=== PATIENT | female | born 1955 | race Caucasian/White ===

== ENCOUNTER 2020-03-10 15:15 | Inpatient (IN) | payer BC ==
[2020-03-10 15:48] LABS: #Basophils 0.1 thou/uL (0.0-0.2); #Eosinphils 1.7 thou/uL (0.0-0.7); #Lymphocytes 0.4 thou/uL (1.20-3.40); #Monocytes 0.6 thou/uL (0.11-0.59); #Neutrophils 7.3 thou/uL (1.40-6.50); %Basophils 0.5 % (0.0-1.0); %Eosinophils 16.9 % (0.0-10.0); %Lymphocytes 3.6 % (21.0-51.0); %Neutrophils 72.9 % (42.0-75.0); Hemoglobin 9.3 g/dL (12.0-16.0); Mean Corpuscular HGB CONC 31.7 g/dL (32.0-36.0); Mean Corpuscular Hemoglobin 25.9 pg (27.0-31.0); Mean Corpuscular Volume 81.6 fL (78.0-98.0); Mean Platelet Volume 8.2 fL (7.4-10.4); Platelet Count 165 thou/uL (130-400); Red Blood Cell (RBC) Count 3.61 mill/uL (4.20-5.40)
[2020-03-10 15:58] LABS: ALT (SGPT) 27 U/L (8-55); AST (SGOT) 32 U/L (5-34); Albumin 3.7 g/dL (3.4-4.8); Alkaline Phosphatase 82 U/L (40-110); Anion Gap 18 mmol/L (10-20); BUN (Urea Nitrogen) 101 mg/dL (9.8-20.1); Bilirubin, Total 0.4 mg/dL (0.2-1.2); Calc. Creatinine Clearance 0 mL/min (70-130); Carbon Dioxide 28 mmol/L (23-31); Chloride 93 mmol/L (98-107); Globulin 2.6 g/dL (2.4-3.5); Glucose 180 mg/dL (80-115); Protein, Total 6.3 g/dL (6.0-8.3); Sodium 136 mmol/L (136-145)
[2020-03-10 16:11] LABS: INR-International Normal Ratio 1.2; PTT 43.3 sec (22.9-36.1); Prothrombin Time 15.8 sec (12.0-14.7)
[2020-03-10 16:36] LABS: Magnesium 3.1 mg/dL (1.6-2.6)
[2020-03-10 16:37] LABS: CKMB 7.8 ng/mL (0-6.6)
[2020-03-10] MEDS ORDERED: Insulin Regular 300 UNITS/3 ML VIAL SC PRN (16:53)
[2020-03-10] MEDS ORDERED: Dextrose 50% Abboject 50 ML SYRINGE SLOW IVP PRN (16:53)
[2020-03-10] MEDS ORDERED: Dextrose 5% in Water 1,000 ML IV PRN (16:53)
[2020-03-10] MEDS ORDERED: hydrALAZINE 20 MG/ML VIAL SLOW IVP PRN (16:53)
[2020-03-10] MEDS ORDERED: Lactated Ringer's 1,000 ML IV SCH ×2 (17:00→17:45)
--- NOTE | 2020-03-10 17:28 | RAD ---
Exam: Chest one view HISTORY:Fall. Comparison: 04/29/2017 FINDINGS: Cardiac silhouette: Normal Aorta: Unremarkable Pulmonary vessels: Normal Costophrenic angles: Blunting of the left costophrenic angle likely due to small effusion. LUNGS: No masses or consolidation. Chronic changes. Diminished lung volumes, likely due to a poor ins piratory effort. Pneumothorax: None Osseous abnormalities: None IMPRESSION: Small left-sided effusion.
--- NOTE | 2020-03-10 17:30 | CT ---
Exam: Head CT without contrast HISTORY: Left tentorial subdural hematoma. COMPARISON: none FINDINGS: Hemorrhage: Left tentorial subdural hematoma. Largest component measures 2.6 x 2.1 cm. Subdural colle ction extends along the posterior left parafalcine region. Subdural blood also extends along the medial left temporal subdural region. No evidence of intraparenchymal hemorrhage. There is a isodense left frontal temporal subdural collection. This collection measures approximately 0.3 cm. No significant mass effect upon the left frontal or temporal region. Brain parenchyma: Cortical hdez-white matter differentiation is preserved. No mass effect or midline shift. Basilar cisterns are patent. Ventricular system: Ventricles and sulci are patent and symmetric. Calvarium: Intact. Sinuses and mastoid air cells: Adequate aeration. IMPRESSION: Extra-axial hemorrhage as described above. Findings conveyed to Niko Meier via [employer] 03/10/2020 5:29 PM Code CR Transcribed Date/Time: 03/10/2020 5:42 PM
[2020-03-10 17:32] LABS: Bacteria/HPF None Seen HPF (None Seen); Bilirubin Negative (Negative); Blood, Urine 1+ (Negative); Clarity Clear (Clear); Glucose, Urine (Dipstick) 100 mg/dL (Negative); Ketone, Urine Negative (Negative); Leukocyte Negative Leu/uL (Negative); Nitrite Negative (Negative); Protein, Urine (Dipstick) 100 mg/dL (Neg-Trace); RBC/HPF 0-3 HPF (0-3); Specific Gravity, Urine 1.012 (1.002-1.036); Squamous Epithelial 0-3 HPF (0-3); Urobilinogen Normal mg/dL (Less than 2); WBC/HPF 0-3 HPF (0-3); pH, Urine 6.5 (5.0-9.0)
--- NOTE | 2020-03-10 19:14 | HP ---
CONSULTING PHYSICIAN: Ling Jain MD HISTORY OF PRESENT ILLNESS: The patient is a 64-year-old female, who was transferred from [place] via flight. The patient reports that her knees gave out on Friday. She subsequently fell on to her side and hit her head. She denies loss of consciousness. She reports taking aspirin and Brilinta. The patient reports another fall on Friday. She states that she fell directly on her bottom. The only pain that she reports is on the left side of her head whenever she leans forward. She says that since her multiple falls that she has been having trouble finding her words. There are no signs that she is having a TIA. She actually talks quite clearly, occasionally she becomes overwhelmed and emotional and has trouble getting out, which she is trying to say, but can follow along with a conversation quite well. Her GCS is 15 on my evaluation. Her strength is equal bilaterally. There are no signs of any facial drooping. She is alert and oriented x4. Her is at the bedside, who is able to provide additional support and information about her medical history. The patient gets around with a walker usually and was using her walker when she fell these 2 times. The patient received potassium orally at the outside hospital. The documentation provided does not specify the amount of potassium that she was provided. The patient reports within the past 6 months having cardiac type symptoms and being [place] the [place], where she was started on Brilinta. It is unclear if she had an RI, but her home archaeologist continued the medication and reported that her troponin levels were unconcerning when she evaluated the patient. Upon my evaluation, the patient reports that she has not had any recent shortness of breath, chest pain, cough, fever, chills, lightheadedness, dizziness, or syncopal events. REVIEW OF SYSTEMS: All additional 10-point review of systems negative except as indicated above. PAST MEDICAL HISTORY: CHF, CKD with creatinine usually between 1.9 and 2.2. The patient also recently diagnosed with some sort of restrictive airway disease, but has not further been delineated by the warehouse supervisor that she just started seeing, diabetes, hypertension. PAST SURGICAL HISTORY: None. SOCIAL HISTORY: The patient denies tobacco, drug, or alcohol use. MEDICATIONS: The patient cannot remember her medications at this time. She has a list in the car and her will go get it later. He was not willing to go get at the time of my evaluation, but we do know that she takes Brilinta and aspirin. ALLERGIES: PENICILLIN, CODEINE, AMPICILLIN, AND CONTRAST DYE. PHYSICAL EXAMINATION: VITAL SIGNS: Temperature 96.8, pulse 69, respirations 17, oxygen saturation 98% on room air, and blood pressure 149/62. PRIMARY SURVEY: Airway intact. Adequate breath sounds bilaterally. 2+ pulses in bilateral radials, femorals, and DPs. GCS 15. Gross motor and sensation are intact. No lacerations, bruising, or external bleeding. SECONDARY SURVEY: HEAD: Normocephalic and atraumatic. No gross palpable skull deformities or tenderness. EYES: Pupils equal, round, and reactive to light bilaterally, 3 to 2. ENT: No hemotympanum. No epistaxis. No septal hematoma. Midface stable to manipulation. No blood in the oropharynx. Dentition is intact. NECK: No anterior neck injury/crepitus/tenderness. ABDOMEN: Soft, nontender, and nondistended. PELVIS: Stable to palpation, nontender. No abrasions or ecchymosis noted. RECTAL: Deferred. GENITOURINARY: Deferred. BACK/SPINE: No step-offs or deformities or tenderness to palpation of the thoracic or lumbar spine. No abrasions or ecchymosis noted. NEUROLOGIC: 5/5 strength in bilateral machine tailer, plantar flexion, dorsiflexion. Gross normal sensation x4 extremities. LABORATORY FINDINGS: White count 10.0, hemoglobin 9.3, hematocrit 29.5, and platelets 165. INR 1.2, PTT 43.3. Sodium 136, potassium 3.0, chloride 93, bicarb 29, BUN 101, creatinine 3.37, glucose 180, phosphorus 6.0, magnesium 3.1, total bilirubin 0.7, AST 32, ALT 27, alkaline phosphatase 82, ammonia 34. Troponin 0.037. DIAGNOSTIC FINDINGS: CT scan of the brain demonstrates extra-axial hemorrhage as described above. Chest x-ray demonstrates small left-sided effusion. ASSESSMENT: 1. Status post multiple falls, last one 48 hours ago. 2. Acute kidney injury on chronic kidney disease. 3. Acute hypokalemia. 4. Acute hyperphosphatemia and hypermagnesemia. 5. Elevated troponin, etiology is still unclear. 6. Extra-axial hemorrhage. 7. History of congestive heart failure. 8. Chronic kidney disease. 9. Restrictive airway disease. 10. Diabetes. 11. Hypertension. 12. Recent history of altered mental status. PLAN: The patient will be admitted to the Trauma Service. Dr. Jain's Team has evaluated the patient and they have ordered platelets as well as q.2 hours neuro checks. They have requested the patient go to IM. We will repeat her CT scan in the morning. Repeat troponins 3 hours from the last and continue to trend if concerned. We will hold her Brilinta and aspirin. The patient has received potassium electrolyte replacement orally. We will repeat the blood work in the morning to re-evaluate all electrolytes as well as kidney function. We will hold nephrotoxic agents at this time. She will receive IV fluid bolus with additional resuscitation. The patient on a clear liquid diet. Pending urine drug screen and blood alcohol level. This patient was discussed with Dr. Padilla before this dictation. Job ID: [id number]
[2020-03-10 19:17] LABS: Troponin I 0.028 ng/mL (< 0.028)
[2020-03-10 19:50] LABS: SARS-CoV-2 NAA Rapid Test Not Detected (NotDetected)
[2020-03-10] MEDS ORDERED: Ondansetron PF 4 MG/2 ML Vial IVP PRN (20:00)
[2020-03-10] MEDS ORDERED: Ondansetron ODT 4 MG TAB SL PRN (20:00)
[2020-03-10] MEDS: Acetaminophen 500 MG TAB PO PRN (20:59)
[2020-03-10] MEDS: Senokot S 8.6-50 MG TAB PO SCH (21:00)
[2020-03-10] MEDS ORDERED: Famotidine/PF 20 mg/2ml Vial SLOW IVP SCH (21:00)
[2020-03-10 23:10] VITALS: BMI 37.3
--- NOTE | 2020-03-10 23:35 | CON ---
DATE OF CONSULTATION: 03/10/2020 CHIEF COMPLAINT: Fall. HISTORY OF PRESENT ILLNESS: Mrs. Amaya is a 64-year-old female transferred from [facility] in [place] by [employer]. Reports she fell on Friday and Friday due to her legs giving out. Only reports hitting her head on Friday. Currently takes aspirin 81 mg and ticagrelor 90 mg due to a recent [place] Her took her to [facility] today for headache and slight difficulty with her words. While in the ED at [facility] in [place], she has no neuro deficits on exam. She is moving all extremities. There is no focal motor weakness. Neurosurgery was consulted due to head CT indicating a left 1.8 cm tentorial subdural hematoma. She denies any abdominal pain, back pain, chest pain, nausea, neck pain, seizures, vomiting, loss of consciousness, bladder or bowel dysfunction. REVIEW OF SYSTEMS: CONSTITUTIONAL: Denies fever and chills. ENT: Denies change in vision or hearing. CARDIAC: Denies chest pain, shortness of breath, or diaphoresis. PULMONARY: Denies shortness of breath, cough, or hemoptysis. GI: Denies abdominal pain, nausea, vomiting, diarrhea, change in stool formation and consistency. : Denies trouble with urination, frequency of urination, bloody urine. SKIN: Reports bruising. Denies skin rash, bleeding, or skin masses. MUSCULOSKELETAL: As per history of present illness. NEUROLOGICAL: As per history of present illness. PSYCHOLOGICAL: Denies anxiety, depression, or behavior changes. MEDICAL HISTORY: 1. Cataracts, bilateral. 2. Congestive heart failure, 12/29/2017. 3. Chronic kidney disease, 12/11/2017. 4. Acute hepatitis, 12/30/2017. 5. Diabetes type 2, 12/11/2017. 6. GERD, 12/11/2017. 7. Hypertension, 12/11/2017. PAST SURGICAL HISTORY: Colonoscopy with biopsies in 1986, upper endoscopy on 09/11/2017, cataract extraction in 2018, and tonsillectomy. MEDICATIONS: 1. Acetaminophen 500 mg. 2. Albuterol HFA 90 mcg. 3. Aspirin 81 mg. 4. Atorvastatin 40 mg. 5. Carvedilol 25 mg. 6. Chlorzoxazone 500 mg. 7. Fluticasone 50 mcg nasal spray. 8. Furosemide 80 mg. 9. Gabapentin 300 mg. 10. Hydralazine 100 mg. 11. Levemir. 12. Imdur 60 mg. 13. Xyzal 5 mg. 14. Meclizine 25 mg. 15. Metolazone. 16. Nifedipine 90 mg. 17. Zofran 4 mg. 18. Phenergan 25 mg. 19. Tigracelor 90 mg. ALLERGIES: AMPICILLIN, CODEINE, DICLOFENAC, NEOMYCIN, PENICILLINS, TETRACYCLINES, IODINE CONTRAST MEDIA. SOCIAL HISTORY: Nonsmoker, does not use alcohol. Denies illicit drug use. PHYSICAL EXAMINATION: VITAL SIGNS: BP 148/58, heart rate 73, temperature 97.8. HEENT: Pupils are equal. Extraocular movements are intact. NECK: Normal, soft and supple. No masses are noted. Range of motion is intact and nonpainful. NEUROLOGIC: Awake, alert, and oriented x3. Memory, attention, fund of knowledge, and language are normal. Cranial nerves are grossly intact. EXTREMITIES: Free active range of motion in all extremities. No focal motor weakness. No reflex asymmetry. GCS 15. IMAGING: Head CT, left tentorial subdural hematoma measuring 1.8 cm. LABORATORY DATA: WBC 10, RBC 3.61, hemoglobin 9.3, hematocrit 29.5, platelets 165. PT 15.8, INR 1.2, PTT 43.3. Sodium 136, troponin-I 0.037. ASSESSMENT: 1. Left tentorial subdural hematoma. 2. Headache. 3. Fall. PLAN: Recommend Medicine team to help with management of hypertension and diabetes with also elevated troponin-I. We will give 1 unit of platelets to reverse Tigracelor (Brilinta). Stop aspirin and stop Tigracelor for [address] of the brain tomorrow morning. No intracranial surgery at this time. Supportive care. We will follow up with her in the morning. Job ID: [id number] [facility]
[2020-03-10 23:54] LABS: Amphetamine Not Detected (NotDetected); Barbiturates Screen Not Detected (NotDetected); Benzodiazepine Screen Not Detected (NotDetected); Cocaine Metabolite Screen Not Detected (NotDetected); Medtox Control Line Valid? VALID (VALID); Medtox Reader # READER 4; Methadone Not Detected (NotDetected); Methamphetamine Not Detected (NotDetected); Opiate Screen Not Detected (NotDetected); Oxycodone Screen Not Detected (NotDetected); Phencyclidine (PCP) Not Detected (NotDetected); THC/Cannabinoid Screen Not Detected (NotDetected); Tricyclic Screen Not Detected (NotDetected)
[2020-03-11 04:24] LABS: #Basophils 0.1 thou/uL (0.0-0.2); #Eosinphils 0.9 thou/uL (0.0-0.7); #Lymphocytes 0.3 thou/uL (1.20-3.40); #Monocytes 0.7 thou/uL (0.11-0.59); #Neutrophils 8.5 thou/uL (1.40-6.50); %Basophils 0.7 % (0.0-1.0); %Eosinophils 8.6 % (0.0-10.0); %Lymphocytes 2.5 % (21.0-51.0); %Monocytes 6.9 % (0.0-10.0); %Neutrophils 81.3 % (42.0-75.0); Hemoglobin 8.1 g/dL (12.0-16.0); Mean Corpuscular HGB CONC 30.9 g/dL (32.0-36.0); Mean Corpuscular Hemoglobin 25.4 pg (27.0-31.0); Mean Corpuscular Volume 82.4 fL (78.0-98.0); Mean Platelet Volume 8.3 fL (7.4-10.4); Platelet Count 187 thou/uL (130-400); RBC Distribution Width 14.9 % (11.5-14.5); Red Blood Cell (RBC) Count 3.17 mill/uL (4.20-5.40); White Blood Cell (WBC) Count 10.5 thou/uL (4.8-10.8)
[2020-03-11 04:52] LABS: Anion Gap 20 mmol/L (10-20); BUN (Urea Nitrogen) 98 mg/dL (9.8-20.1); Calc. Creatinine Clearance 24 mL/min (70-130); Calcium 8.1 mg/dL (7.8-10.44); Carbon Dioxide 24 mmol/L (23-31); Chloride 96 mmol/L (98-107); Glucose 137 mg/dL (80-115); Magnesium 2.9 mg/dL (1.6-2.6); Phosphorus 5.7 mg/dL (2.3-4.7); Potassium 3.2 mmol/L (3.5-5.1); Sodium 137 mmol/L (136-145)
--- NOTE | 2020-03-11 06:32 | PRG ---
DATE OF SERVICE: 03/11/2020 The patient is currently on the IMCU. She was admitted with a subdural hemorrhage with a delayed presentation. The nurse reported no issues overnight. She received her 1 unit of platelets per Neurosurgery. The nurse reports the patient's [place] Coma Scale remains 14/15. Her vital signs are stable. At each of my visit, the patient has been resting comfortably. I did not awaken her for an exam. We will continue as previously planned per the day team and Neurosurgery. Job ID: [id number]
--- NOTE | 2020-03-11 07:41 | CT ---
PRELIMINARY REPORT/DIRECT RADIOLOGY/EMERGENCY AFTER HOURS PROCEDURE: EXAM: CT Head Without Intravenous Contrast. CLINICAL HISTORY: Follow up tentorial subdural hematoma TECHNIQUE: axial computed tomography images of the head/brain without intravenous contrast. COMPARISON: CTSR - CT BRAIN WO CON - 03/10/2020 05:20 PM RECREATIONAL SPECIALIST FINDINGS: BRAIN: No significant interval change in the collection of subdural blood seen extending along the fl oor of the left tentorial membrane with mild mass-effect on the subjacent posterior and anterior temporal lobe. No new areas of debris from hemorrhage. No mass lesion. No CT evidence for acute terr itorial infarct. No midline shift or extra-axial collection. VENTRICLES: No hydrocephalus. ORBITS: Status post lens replacement of the bilateral globes. The orbits are otherwise unremarkable. SINUSES AND MASTOIDS: The paranasal sinuses and mastoid air cells are clear. SOFT TISSUES: No significant facial or scalp soft tissue swelling evident. No radiopaque foreign body is seen. BONES: No acute skull fracture. IMPRESSION: 1. Unchanged appearance of the left subdural hematoma extending along the tentorial membrane. 2. No new acute or suspicious intracranial findings. ELECTRONICALLY SIGNED BY: Mook Colon MD Mar 11, 2020 5:06:56 AM RECREATIONAL SPECIALIST FINAL REPORT BRAIN CT WITHOUT CONTRAST: EMERGENCY AFTER HOURS EXAM TIME: 4:40 AM. DATE: 03/11/2020. This a final report. Overall stable left tentorial, left temporal, and left parafalcine hemorrhage from 03/10/2020 5:21 PM study This report agrees with the preliminary report. Transcribed Date/Time: 03/11/2020 7:47 AM
[2020-03-11] MEDS ORDERED: Fluticasone Propionate Nasal Spray 16 gm Bottle NASAL PRN (07:55)
[2020-03-11] MEDS ORDERED: Albuterol 200 PUFF (6.7GM INHALER) INH PRN (08:07)
[2020-03-11] MEDS ORDERED: Potassium Chloride 40 MEQ in Sodium Chloride 0.9% 250 ML 250 ML IVPB SCH (08:30)
--- NOTE | 2020-03-11 08:46 | PRG ---
DATE OF SERVICE: 03/11/2020 I personally interviewed and examined the patient, reviewed notes and imaging and agreed with the documentation of Niko Meier PA-C dated 03/10/2020 and 03/11/2020. Briefly, Tamiko Amaya was admitted to our hospital yesterday in transfer after head injury resulted in a tentorial hematoma on the left side. She was on Brilinta and aspirin as dual antiplatelet agents prior to the fall. She has been given platelets overnight. When I get Ms. Amaya awake this morning, she does not complain of headache. A followup CT scan has been done already this morning. OBJECTIVE: VITAL SIGNS: Among the electronically recorded vital signs, I see a maximum temperature of 99.7 degrees Fahrenheit. Blood pressures have ranged between 140s and 160s. Heart rate is in the 70s. NEUROLOGIC: On neurological examination, Ms. Amaya requires some stimulus to open her eyes, but after waking, she gives appropriate one-word answers to questions. She moves all 4 extremities to command. She is wiggling her toes for me. She is squeezing both hands. She nods, she says yes and no and she tells me that her head does not hurt. She falls quickly back to sleep. There is no lateralizing neglect or drift. DIAGNOSTIC DATA: I reviewed this morning CT scan of the brain. The tentorial subdural hematoma under the left temporal lobe is the same as it was yesterday. Ms. Amaya is getting Pepcid which has a mild antiplatelet activity. I stopped that and started Protonix. Ms. Amaya was getting 100 mL of lactated Ringer's per hour, which is likely not necessary. I stop the IV fluid for now. It can be restarted, but if it is, I would start at a very low dose of normal saline. If she wakes and feels hunger and thirst, she can drink and she does not need IV fluids. Her reports a chronic creatinine in the 2-2.5 range, so her CRI is a bit worse. We should follow sodium over time to ensure she does not develop any hyponatremia and I could put her at risk for seizures. We will add kepppra We need to hold Brilinta two weeks, if ASA is necessary sooner, my preference is 1 week at least. The location of the subdural hematoma does not make it advantageous for any surgical intervention, and she will be treated conservatively. Job ID: [id number] MTDD
[2020-03-11] MEDS ORDERED: Famotidine 20 MG TAB PO SCH (09:00)
[2020-03-11] MEDS ORDERED: Prevnar 13-Val Conj/PF 0.5 ML SYRINGE IM ONE (09:00)
[2020-03-11] MEDS ORDERED: FLU VACC QS2020-21(6MOS UP)/PF 60 MCG/0.5 ML SYRINGE IM ONE (09:00)
[2020-03-11] MEDS: Carvedilol 25 MG TAB PO SCH ×2 (09:27→20:31)
[2020-03-11] MEDS: Gabapentin 100 MG CAP PO SCH (09:27)
[2020-03-11] MEDS: Montelukast Sodium 10 mg Tablet PO SCH (09:28)
[2020-03-11] MEDS: Senokot S 8.6-50 MG TAB PO SCH ×2 (09:28→20:31)
[2020-03-11] MEDS: Polyethylene Glycol 3350 17 GM Packet PO SCH (09:29)
[2020-03-11] MEDS: Acetaminophen 500 MG TAB PO PRN ×2 (09:34→21:40)
--- NOTE | 2020-03-11 12:20 | PRG ---
DATE OF SERVICE: 03/11/2020 SUBJECTIVE: The patient was seen this morning during rounds. She was sitting up in bed, asleep. She was arousable. GCS 15. She has not had breakfast yet. Reports her pain is controlled. No acute events overnight. OBJECTIVE: VITAL SIGNS: Temperature 98.8, pulse 84, respirations 12, oxygen saturation 99% on room air, blood pressure 167/105. GENERAL: Well-appearing middle-aged female, sitting up in bed with no signs of acute distress. PULMONARY: Equal chest rise and fall. Clear breath sounds bilaterally. No signs of acute respiratory distress. CARDIAC: Regular rate and rhythm. GI: Abdomen is soft, nontender, nondistended. EXTREMITIES: 2+ pulses in all extremities. Gross motor and sensation are intact. No significant swelling noted. NEUROLOGIC: GCS is 15. Pupils are equal, round, reactive to light bilaterally. No focal neurological deficits noted. LABORATORY FINDINGS: White count 10.5, hemoglobin 8.1, hematocrit 26.1, platelets 187. Sodium 137, potassium 3.2, chloride 96, bicarb 24, BUN 98, creatinine 3.23, glucose 137, phosphorus 5.7, magnesium 2.9. DIAGNOSTIC FINDINGS: CT scan completed this morning demonstrates unchanged appearance of left subdural hemorrhage extending along the tentorial membrane. No new acute or spontaneous intracranial findings. ASSESSMENT: 1. Status post multiple recent falls, on Brilinta. 2. Extraaxial subdural hemorrhage. 3. Acute kidney injury on chronic kidney disease, slightly improved. 4. Acute hypokalemia, persistent, but slightly improved. 5. Acute hyperphosphatemia and hypermagnesemia, improving. 6. History of possible myocardial infarction within the past 6 months. The patient is a poor historian, congestive heart failure, chronic kidney disease, restrictive airway disease, diabetes, and hypertension. PLAN: Advance the patient to a diabetic diet. Discontinue IV fluids. Hold home Lasix. Repeat blood work in the morning to follow electrolytes as well as kidney function. Start working with Physical and Occupational therapy as well as speech language pathology. Neurosurgery recommends holding Brilinta and aspirin for 2 weeks for her traumatic brain injury. Dr. Soto has asked to consult Cardiology's further input as well seeing as the patient has a recent history of DE. Order has been placed for Case Management to start working on rehab screening.This patient was discussed with this morning before this dictation. Job ID: [id number] [facility]
--- NOTE | 2020-03-11 15:53 | CON ---
DATE OF CONSULTATION: HISTORY OF PRESENT ILLNESS: The patient is a 65-year-old woman who had a fall and developed altered mental status. The patient has a previous history of congestive heart failure. She is followed by fish egg packer in the [place]. The patient apparently has diastolic heart failure. She has been on medical therapy. A few months ago, she was in [place] and apparently was found to have an elevated troponin level. It was unclear whether she had suffered a myocardial infarction. She underwent a followup evaluation with her primary fish egg packer. This included an echocardiogram and stress test which were apparently unremarkable. The patient has been doing well until a week ago when she had a fall. The patient had a second fall and now has a subdural hematoma. The patient has not had placement of intracoronary stent according to her and her . The patient denies having any chest pain. She reports dyspnea with minimal exertion. PAST MEDICAL HISTORY: 1. Congestive heart failure. 2. Diabetes mellitus. 3. Hypertension. 4. Restrictive lung disease. PAST SURGICAL HISTORY: None. SOCIAL HISTORY: None. FAMILY HISTORY: None. ALLERGIES: CODEINE, PENICILLIN, AND IODINE. REVIEW OF SYSTEMS: Ten-point system otherwise unremarkable. No history of bruising or bleeding. PHYSICAL EXAMINATION: GENERAL: Obese woman, in no acute distress. VITAL SIGNS: Blood pressure was 147/70. NECK: No jugular venous distention. LUNGS: Clear to auscultation. HEART: Regular rate and rhythm. Normal S1, S2 with a 1/6 systolic murmur. ABDOMEN: Distended. EXTREMITIES: Showed severe bilateral edema. VASCULAR: Radial pulses 2+. LABORATORY DATA: Sodium 137, potassium 3.2, chloride 96, bicarbonate 24, BUN 98, creatinine 3.2, glucose 137. White blood cell count 10.5, hemoglobin 8.1, hematocrit 26.1, platelets are 187. IMPRESSION: 1. Subdural hematoma. 2. History of a possible myocardial infarction. 3. Hypertension. 4. Diabetes mellitus. 5. Chronic renal failure. 6. This patient presents with a subdural hematoma. She had been on Brilinta and aspirin because of her previous hospitalization where she had an elevated troponin level. From a cardiac standpoint, she did not have placement of a stent, so it is appropriate for her to be off anti-platelet medication. I will check an echocardiogram. I would restart the patient on her Imdur. We will follow this patient with you through her hospitalization. Job ID: [id number] MTDD
[2020-03-11] MEDS: levETIRAcetam 500 MG TAB PO SCH (20:31)
[2020-03-11] MEDS: Atorvastatin Calcium 40 MG TAB PO SCH (20:31)
[2020-03-11] MEDS: Loratadine 10 MG TAB PO SCH (20:31)
[2020-03-11] MEDS: Mometasone 100 MCG/Formoterol 5 MCG 120 PUFF INHALER INH SCH (21:39)
--- NOTE | 2020-03-12 04:51 | PRG ---
DATE OF SERVICE: 03/12/2020 The patient is currently on the surgical floor. She is status post a fall on Brilinta with a delayed presentation, underwent evaluation and examination, was noted to have a subdural hemorrhage. The patient has been doing well. She was moved from the IMCU today to the surgical floor. Her neurologic exam remained stable with a [place] Coma Scale of 14-15. She has been evaluated by Cardiology today and they agree with holding her aspirin and her Brilinta. The patient is awaiting placement. She will continue working with physical and occupational therapy. Job ID: [id number]
[2020-03-12 05:16] LABS: #Eosinphils 1.6 thou/uL (0.0-0.7); #Lymphocytes 0.5 thou/uL (1.20-3.40); #Monocytes 0.6 thou/uL (0.11-0.59); #Neutrophils 7.3 thou/uL (1.40-6.50); %Basophils 0.5 % (0.0-1.0); %Eosinophils 15.8 % (0.0-10.0); %Lymphocytes 4.6 % (21.0-51.0); %Monocytes 6.3 % (0.0-10.0); %Neutrophils 72.9 % (42.0-75.0); Hemoglobin 8.3 g/dL (12.0-16.0); Mean Corpuscular HGB CONC 30.2 g/dL (32.0-36.0); Mean Corpuscular Hemoglobin 25.2 pg (27.0-31.0); Mean Corpuscular Volume 83.2 fL (78.0-98.0); Mean Platelet Volume 7.9 fL (7.4-10.4); Platelet Count 170 thou/uL (130-400); RBC Distribution Width 14.9 % (11.5-14.5); Red Blood Cell (RBC) Count 3.31 mill/uL (4.20-5.40)
[2020-03-12 05:36] LABS: Anion Gap 18 mmol/L (10-20); BUN (Urea Nitrogen) 93 mg/dL (9.8-20.1); Calc. Creatinine Clearance 24 mL/min (70-130); Calcium 8.3 mg/dL (7.8-10.44); Carbon Dioxide 27 mmol/L (23-31); Chloride 99 mmol/L (98-107); Glucose 127 mg/dL (80-115); Potassium 3.7 mmol/L (3.5-5.1); Sodium 140 mmol/L (136-145)
[2020-03-12] MEDS: Mometasone 100 MCG/Formoterol 5 MCG 120 PUFF INHALER INH SCH ×2 (08:12→18:31)
[2020-03-12] MEDS ORDERED: Potassium Chloride 20 MEQ TAB PO SCH (09:00)
--- NOTE | 2020-03-12 09:12 | PRG ---
DATE OF SERVICE: 03/12/2020 I saw Tamiko Amaya in her hospital room this morning. She is out of the intermediate care unit. She is more awake this morning. She complains of some cognitive slowing where, it is hard to get the right words to say and that frustrates her. Her extremities are working well. Overnight, the maximum temperature I saw was 99.9 degrees Fahrenheit. Her blood pressures have been in the 160s to 170s, slightly high. Heart rates are in the 50s to 60s. Her oxygen saturation on room air is 92% to 93%. She does not feel short of breath. Ms. Amaya is awake. She follows commands. She moves all 4 extremities. I do not appreciate any cognitive slowing, but she complains on that. We will continue to follow Ms. Amaya while she is in the hospital. We made recommendations for anti-platelet agents, but I also understand that there is risk in holding these, so we have to balance those risks. Thankfully, her tentorial subdural hematoma is stable and should slowly go away so long as she does not fall again or become extremely coagulopathic. Job ID: [id number]
[2020-03-12] MEDS: levETIRAcetam 500 MG TAB PO SCH ×2 (09:31→20:33)
[2020-03-12] MEDS: Carvedilol 25 MG TAB PO SCH ×2 (09:32→20:33)
[2020-03-12] MEDS: Senokot S 8.6-50 MG TAB PO SCH ×2 (09:32→20:33)
[2020-03-12] MEDS: Gabapentin 100 MG CAP PO SCH (09:32)
[2020-03-12] MEDS: Polyethylene Glycol 3350 17 GM Packet PO SCH (09:32)
[2020-03-12] MEDS: Montelukast Sodium 10 mg Tablet PO SCH (09:32)
[2020-03-12] MEDS: Acetaminophen 500 MG TAB PO PRN ×2 (09:33→20:33)
[2020-03-12] MEDS ORDERED: Hydrocerin (Eucerin) Cream 120 gm Jar TOP PRN (10:43)
--- NOTE | 2020-03-12 19:33 | PRG ---
DATE OF SERVICE: 03/12/2020 SUBJECTIVE: The patient was seen this morning during rounds. She was lying in bed and asleep. She was easily arousable. The patient had auditory end-expiratory wheeze and reported she was feeling a little short of breath. She was placed on 2 L nasal cannula and given breathing treatment. Her oxygen saturation improved from 84% to 100%. She reported she did not sleep well overnight. She generally is not a moaning person. Nursing reported no acute events. She was tolerating her breakfast. OBJECTIVE: VITAL SIGNS: Temperature 98.0, pulse 78, respirations 16, oxygen saturation 91% on room air, and blood pressure 155/66. GENERAL: Well-appearing elderly female, sitting up in bed, awake, with no signs of acute distress. PULMONARY: Equal chest rise and fall. Clear breath sounds bilaterally with end-expiratory wheeze. No signs of acute respiratory distress. CARDIAC: Regular rate and rhythm. GI: Abdomen is soft, nontender, nondistended. EXTREMITIES: 2+ pulses in all extremities. Gross motor and sensation are intact. No significant swelling noted. The patient has excoriations to her bilateral thighs from overnight from scratching. The patient is unsure why she feels so itchy, but she has been having this going on for the past month or so. NEUROLOGIC: GCS is 14, -1 for eyes. LABORATORY FINDINGS: White count 10.0, hemoglobin 8.3, hematocrit 27.5, platelets 170. Sodium 140, potassium 3.7, chloride 99, bicarb 27, BUN 93, creatinine 3.23, glucose 127, phosphorus 5.0, magnesium 3.0. DIAGNOSTIC FINDINGS: There are no new diagnostic findings to report. ASSESSMENT: 1. Status post mechanical fall from standing on Brilinta. 2. Extra-axial hemorrhage, subdural hemorrhage. 3. Acute kidney injury on chronic kidney disease, slightly improved, this kidney function may be her new baseline. We will continue to monitor. 4. Acute hyperphosphatemia and hypermagnesemia, improving. 5. Acute hypokalemia, resolved. 6. History of myocardial infarction, congestive heart failure, chronic kidney disease, restrictive airway disease, diabetes, and hyperlipidemia. PLAN: Continue current diet and pain regimen. Continue physical and occupational therapy. Continue supportive care. We will hold her home Lasix for another day and consider restarting tomorrow. The patient does not appear fluid overloaded at this time. Repeat blood work in the morning. The patient is pending discharge to acute rehab facility. Job ID: [id number]
[2020-03-12] MEDS: Loratadine 10 MG TAB PO SCH (20:33)
[2020-03-12] MEDS: Atorvastatin Calcium 40 MG TAB PO SCH (20:33)
[2020-03-12] MEDS: Fluticasone Propionate Nasal Spray 16 gm Bottle NASAL SCH (20:34)
[2020-03-13] MEDS ORDERED: TACROLIMUS TOP PRN (04:37)
[2020-03-13] MEDS ORDERED: Metolazone 2.5 MG TAB PO PRN (04:37)
--- NOTE | 2020-03-13 04:54 | PRG ---
DATE OF SERVICE: The patient was admitted to the hospital status post fall, on ilinta, in which she sustained a subdural hemorrhage. She has remained stable. She has begun working with physical and occupational therapy. Her vital signs have been stable. She is hypertensive, and we have restarted her home antihypertensive medications. She is awaiting placement. She is afebrile. We will continue supportive care. The nurses report no issues overnight. Job ID: [id number]
[2020-03-13 05:30] LABS: #Basophils 0.1 thou/uL (0.0-0.2); #Eosinphils 1.2 thou/uL (0.0-0.7); #Lymphocytes 0.5 thou/uL (1.20-3.40); #Monocytes 0.4 thou/uL (0.11-0.59); #Neutrophils 7.1 thou/uL (1.40-6.50); %Basophils 0.9 % (0.0-1.0); %Eosinophils 12.4 % (0.0-10.0); %Lymphocytes 5.1 % (21.0-51.0); %Monocytes 4.6 % (0.0-10.0); %Neutrophils 76.9 % (42.0-75.0); Hemoglobin 8.3 g/dL (12.0-16.0); Mean Corpuscular HGB CONC 30.4 g/dL (32.0-36.0); Mean Corpuscular Hemoglobin 25.1 pg (27.0-31.0); Mean Corpuscular Volume 82.7 fL (78.0-98.0); Mean Platelet Volume 8.6 fL (7.4-10.4); Platelet Count 153 thou/uL (130-400); RBC Distribution Width 15.1 % (11.5-14.5); Red Blood Cell (RBC) Count 3.29 mill/uL (4.20-5.40); White Blood Cell (WBC) Count 9.2 thou/uL (4.8-10.8)
[2020-03-13 05:51] LABS: Anion Gap 20 mmol/L (10-20); BUN (Urea Nitrogen) 91 mg/dL (9.8-20.1); Calc. Creatinine Clearance 25 mL/min (70-130); Calcium 8.6 mg/dL (7.8-10.44); Carbon Dioxide 25 mmol/L (23-31); Chloride 104 mmol/L (98-107); Glucose 91 mg/dL (80-115); Phosphorus 4.6 mg/dL (2.3-4.7); Potassium 4.3 mmol/L (3.5-5.1); Sodium 145 mmol/L (136-145)
[2020-03-13] MEDS ORDERED: Labetalol HCl 100 MG/20 ML VIAL SLOW IVP PRN ×2 (06:12→06:19)
[2020-03-13] MEDS: Mometasone 100 MCG/Formoterol 5 MCG 120 PUFF INHALER INH SCH ×2 (07:09→19:41)
--- NOTE | 2020-03-13 07:21 | PRG ---
DATE OF SERVICE: 03/13/2020 I saw Tamiko Amaya in her hospital room this morning. She has been out of the ICU since Friday afternoon. She remains off her aspirin and Brilinta. She complains of feeling cold. She asked for the nurse to come to the room to help her with a bowel movement. No fevers have been recorded since yesterday. Blood pressures are too high, they are in the 160s to 180s. Heart rate is in the 70s to 80s. Ms. Amaya wakes. She follows commands. She moves all 4 extremities. She feels cold and asked me to tuck her in her bed. Her hemoglobin this morning is 8.3. We will continue to follow Ms. Amaya. She may need some better blood pressure control. Eventually, she is likely to be discharged home or for a very brief stay in rehab. Job ID: [id number]
[2020-03-13] MEDS ORDERED: Metolazone 2.5 MG TAB PO SCH (09:58)
[2020-03-13] MEDS: Acetaminophen 500 MG TAB PO PRN ×2 (10:20→19:52)
[2020-03-13] MEDS: Gabapentin 100 MG CAP PO SCH (10:20)
[2020-03-13] MEDS: Montelukast Sodium 10 mg Tablet PO SCH (10:20)
[2020-03-13] MEDS: Carvedilol 25 MG TAB PO SCH ×2 (10:21→19:51)
[2020-03-13] MEDS: Furosemide 80 MG TAB PO SCH (10:21)
[2020-03-13] MEDS: levETIRAcetam 500 MG TAB PO SCH ×2 (10:21→19:51)
[2020-03-13] MEDS: Fluticasone Propionate Nasal Spray 16 gm Bottle NASAL SCH ×2 (10:21→19:50)
[2020-03-13] MEDS: NIFEdipine XL 90 MG TAB PO SCH (10:21)
[2020-03-13] MEDS: Senokot S 8.6-50 MG TAB PO SCH ×2 (10:27→19:48)
[2020-03-13] MEDS: Polyethylene Glycol 3350 17 GM Packet PO SCH (10:27)
--- NOTE | 2020-03-13 11:41 | RAD ---
PORTABLE CHEST: COMPARISON: 03/10/2020 exam. HISTORY: Shortness of breath. FINDINGS: Heart size is enlarged. Pulmonary vessels are mildly engorged. Increased interstitial alveolar lung changes in right perihilar and lower lobe. This could be an asymmetric pulmonary edema pattern vers us pneumonic change. These changes have developed since the prior exam. IMPRESSION: Cardiomegaly with increased right parahilar and lower lobe parenchymal markings developing since the prior examination. This could be on the basis of an asymmetric pulmonary edema pattern or pneumonia. Blunting to the left costophrenic angle is stable. POS: PO
[2020-03-13] MEDS ORDERED: Triamcinolone 0.1% Cream 30 GM TUBE TOP PRN (15:02)
[2020-03-13] MEDS: Loratadine 10 MG TAB PO SCH (19:51)
[2020-03-13] MEDS: Furosemide 40 MG TAB PO SCH (19:51)
[2020-03-13] MEDS: Atorvastatin Calcium 40 MG TAB PO SCH (19:51)
--- NOTE | 2020-03-14 05:13 | PRG ---
DATE OF SERVICE: 03/13/2020 SUBJECTIVE: This patient was seen during morning rounds. She was lying in bed, asleep but arousable. This morning, she did not have any complaint and was resting comfortably in bed. There were no acute events reported overnight. The patient was seen again in the afternoon and reported she is allergic to the laundry detergent that is used in the hospital. She is complaining of itching all over her legs and her back and has been scratching. This has not been relieved with Emollient lotion that was provided to her. OBJECTIVE: VITAL SIGNS: Temp 98.8, pulse 75, respirations 18, O2 saturation 94% on room air, blood pressure 137/73. GENERAL: Elderly female, sitting in chair at the side of the bed this afternoon, in mild distress due to itching. HEENT: Unremarkable. CARDIAC: Regular rate and rhythm. PULMONARY: Equal chest rise and fall. Expiratory wheezing with few rhonchi bilaterally. No signs of acute respiratory distress. GI: Abdomen is soft, nontender, nondistended. EXTREMITIES: 2+ pulses in all extremities. No swelling. Gross motor and sensation intact. Diffuse excoriations to bilateral lower extremities. No excoriations noted on upper extremities. NEUROLOGIC: GCS 14, -1 for confusion. LABORATORY FINDINGS: White blood cell 9.2, hemoglobin 8.3, hematocrit 27.2, platelets 153. Sodium 145, potassium 4.3, chloride 104, CO2 of 25, BUN 91, creatinine 3.05, glucose 91, calcium 8.6, phosphorus 4.6, magnesium 3.0. DIAGNOSTIC FINDINGS: Chest x-ray this morning reveals cardiomegaly with increased right perihilar and lower lobe parenchymal markings developing since prior examination. This could be the basis of an asymmetric pulmonary edema pattern or pneumonia. Blunting to the left costophrenic angle is stable. ASSESSMENT: 1. Status post mechanical fall from standing, on Brilinta. 2. Extra-axial hemorrhage, subdural hemorrhage. 3. Acute kidney injury on chronic kidney disease, slightly improved. Kidney function may be her new baseline. We will continue to monitor. 4. Acute hyperphosphatemia and hypermagnesemia, improving. 5. Acute hypokalemia, resolved. 6. History of [place], CHF, CKD, restrictive airway disease, diabetes, hyperlipidemia. PLAN: Continue current diet and pain regimen. Continue physical and occupational therapy. Continue supportive care. She was restarted on her home dose of Lasix 80 mg this morning and is scheduled for an additional 40 mg of Lasix tonight. Added hydrocortisone cream to help with itching as the Emollient lotion has not helped her. She is also being seen by Cardiology who added Procardia to her antihypertensive regimen this morning and this has improved her blood pressure throughout the day. The patient would likely benefit from a rehab placement upon discharge, although she is adamant today that she would like to go home. Would recommend rehab placement for physician oversight due to further need for management of hypertension and acute kidney injury during this period. Her home aspirin and Brilinta have been held and will continue to be held for a total of two weeks. This patient was seen on rounds with Dr. Soto. Job ID: [id number]
[2020-03-14 05:33] LABS: #Basophils 0.1 thou/uL (0.0-0.2); #Eosinphils 1.3 thou/uL (0.0-0.7); #Lymphocytes 0.5 thou/uL (1.20-3.40); #Monocytes 0.5 thou/uL (0.11-0.59); #Neutrophils 6.2 thou/uL (1.40-6.50); %Basophils 0.7 % (0.0-1.0); %Eosinophils 15.6 % (0.0-10.0); %Lymphocytes 5.6 % (21.0-51.0); %Monocytes 6.2 % (0.0-10.0); %Neutrophils 71.9 % (42.0-75.0); Mean Corpuscular HGB CONC 30.1 g/dL (32.0-36.0); Mean Corpuscular Hemoglobin 25.5 pg (27.0-31.0); Mean Corpuscular Volume 84.8 fL (78.0-98.0); Mean Platelet Volume 8.5 fL (7.4-10.4); Platelet Count 134 thou/uL (130-400); RBC Distribution Width 15.3 % (11.5-14.5); Red Blood Cell (RBC) Count 3.15 mill/uL (4.20-5.40); White Blood Cell (WBC) Count 8.6 thou/uL (4.8-10.8)
[2020-03-14 05:50] LABS: Anion Gap 22 mmol/L (10-20); BUN (Urea Nitrogen) 93 mg/dL (9.8-20.1); Calc. Creatinine Clearance 23 mL/min (70-130); Calcium 8.5 mg/dL (7.8-10.44); Carbon Dioxide 24 mmol/L (23-31); Chloride 102 mmol/L (98-107); Glucose 84 mg/dL (80-115); Phosphorus 4.9 mg/dL (2.3-4.7); Potassium 4.2 mmol/L (3.5-5.1); Sodium 144 mmol/L (136-145)
[2020-03-14] MEDS: Mometasone 100 MCG/Formoterol 5 MCG 120 PUFF INHALER INH SCH ×2 (07:36→20:11)
--- NOTE | 2020-03-14 07:43 | PRG ---
DATE OF SERVICE: 03/14/2020 I saw Tamiko Amaya in her room this morning. She is more animated and conversant this morning that she has been since she was admitted with her fall and her tentorial subdural hematoma. She asked me to turn off lights as I left the room. She is not complaining much else. She does not feels cold that she did yesterday. Among the electronically recorded vital signs, I see no fevers. Blood pressures are in the 150s to 180s, which are a bit high. On her examination, she is awake. She is alert. She answers questions appropriately. She is moving all 4 extremities. She is asking to drink water. She looks improved overall. Unfortunately, her hemoglobin is 8.0 without an obvious reason. She may have chronic renal insufficiency without an apparent blood loss reason. Her creatinine is still up, but it is 3.35, which is improved from admission. Ms. Amaya may benefit from brain rehabilitation or if she continues to progress as well as she is now and begins ambulating with assistance in the hallway and prove she is safe for activities of daily living, she may be able to be discharged home. We will make followup arrangements in our office. Job ID: [id number] [facility]
[2020-03-14] MEDS ORDERED: hydrOXYzine 10 MG TAB PO SCH (10:10)
[2020-03-14] MEDS: Polyethylene Glycol 3350 17 GM Packet PO SCH (10:35)
[2020-03-14] MEDS: NIFEdipine XL 90 MG TAB PO SCH (10:35)
[2020-03-14] MEDS: levETIRAcetam 500 MG TAB PO SCH ×2 (10:35→21:17)
[2020-03-14] MEDS: Gabapentin 100 MG CAP PO SCH (10:36)
[2020-03-14] MEDS: Carvedilol 25 MG TAB PO SCH ×2 (10:36→21:17)
[2020-03-14] MEDS: Montelukast Sodium 10 mg Tablet PO SCH (10:37)
[2020-03-14] MEDS: Senokot S 8.6-50 MG TAB PO SCH ×2 (10:47→21:17)
[2020-03-14] MEDS: Furosemide 80 MG TAB PO SCH (10:54)
[2020-03-14] MEDS: Fluticasone Propionate Nasal Spray 16 gm Bottle NASAL SCH ×2 (12:45→21:17)
--- NOTE | 2020-03-14 15:25 | PQF ---
CLINICAL DOCUMENTATION CLARIFICATION FORM: Dear Dr. Soto Date: 03/14/2020 Please exercise your independent, professional judgment in responding to the clarification form. Clinical indicators are provided on the bottom of this form for your review. Please check appropriate box(es): HEART FAILURE ACUITY: [ ] Acute diastolic heart failure [ x ] Acute on Chronic diastolic heart failure [ ] Chronic diastolic heart failure [ ] Other diagnosis [ ] Unable to determine In addition, please specify: Present on Admission (POA): [ x ] Yes [ ] No [ ] Unable to determine For continuity of documentation, please document condition throughout progress notes and discharge summary. Thank You. To be completed by CDI/Coding staff for physician review: CLINICAL INDICATORS - SIGNS / SYMPTOMS / LABS / RESULTS AND LOCATION IN EMR *03/11 Consult ([facility]per) HPI: The pt apparently has diastolic heart failure. Extremities: Showed severe bilateral edema *03/13 pn (Rehg): Diagnostic: Chest XRY this morning reveals cardiomegaly with increased r perihilar and lower lobe parenchymal markings developing since prior examination. This could be the basis of an asymmetric pulmonary edema pattern or pneumonia. RISKS FACTORS / RESULTS AND LOCATION IN EMR *03/13 pn (Rehg) Assessment: Hx of [place], CHF, CKD, restrictive airway disease, diabetes. TREATMENTS / RESULTS AND LOCATION IN EMR *03/11 Cardiology Consult *03/13 pn (Rehg) Plan:She was restarted on her home dose of Lasix 80 mg this am and is scheduled for an additional 40mg of Lasix tonight. Thank you, Mary Rivera RN, [email or web address] Cell This is a permanent part of the Medical Record [facility]
[2020-03-14] MEDS ORDERED: hydrOXYzine 10 MG TAB PO PRN (15:52)
--- NOTE | 2020-03-14 18:36 | ULT ---
US Renal Bilateral STANDARD History: Acute kidney injury Comparison: None. Findings: Real-time grayscale and color evaluation of the kidneys and urinary bladder was performed. Right kidney measures 11.1 x 4.7 x 5.6 cm and the left kidney measures 9.7 x 5.3 x 4.5 cm although th e left kidney is not well-defined. Small-moderate volume ascites in the pelvis limits evaluation of the urinary bladder. Impression: 1. No hydronephrosis. 2. Poorly defined left kidney. 3. Urinary bladder not visualized. 4. Small-moderate volume ascites within the dependent pelvis.
[2020-03-14] MEDS: Atorvastatin Calcium 40 MG TAB PO SCH (21:17)
[2020-03-14] MEDS: Loratadine 10 MG TAB PO SCH (21:17)
--- NOTE | 2020-03-14 22:16 | CON ---
DATE OF CONSULTATION: 03/14/2020 REASON FOR CONSULTATION: Acute kidney injury on chronic kidney disease. REASON FOR ADMISSION: Multiple falls. HISTORY OF PRESENT ILLNESS: This is a -[id number]-fpn female with history of chronic kidney disease, CHF, diabetes, hypertension, came to the hospital after multiple falls, was admitted for neurosurgical evaluation. The patient was found to have acute kidney injury on chronic kidney disease. Her states that her baseline creatinine runs around 2-jarrett range and she was 3.37 on admission which improved to 3.05, this morning it was 3.35. Nephrology was consulted. The patient was also having swelling and edema while on admission and she was on diuretic therapy. The patient is very lethargic. Her was at the bedside. No nausea or vomiting reported. He reports that she is eating better and also that with IV fluids, she gets swelling and he would rather avoid that. PAST MEDICAL HISTORY: Positive for CHF, CKD, diabetes, hypertension. PAST SURGICAL HISTORY: None. HOME MEDICATIONS: Reviewed. ALLERGIES: PENICILLIN, CODEINE. SOCIAL HISTORY: No smoking, alcohol or drug use. FAMILY HISTORY: No history of kidney disease. REVIEW OF SYSTEMS: Could not be obtained. The patient is somnolent and lethargic. PHYSICAL EXAMINATION: GENERAL: This is an elderly female, no apparent distress. VITAL SIGNS: Temperature 99, pulse 71, respiratory rate 18, blood pressure 150/65. HEENT: Atraumatic, normocephalic. NECK: Supple. CVS: S1 and S2. Rate and rhythm regular. RESPIRATORY: Clear. GI: Abdomen is soft. MUSCULOSKELETAL: 1+ edema. DERMATOLOGIC: Denies. NEUROLOGICAL: Somnolent. LABORATORY DATA: Hemoglobin is 8.0. Potassium 4.2, BUN is 93, creatinine is 3.3. ASSESSMENT AND PLAN: 1. Acute kidney injury on chronic kidney disease, stage 4. I recommend her primary team to hold the Lasix dose this evening and also in the morning. We will recheck labs. Encourage oral intake. 2. Edema. 3. . 4. History of hypertension. 5. Anemia. We will check iron panel. 6. Mild hypoalbuminemia. PLAN: Plan is to hold diuretics and monitor renal function and electrolytes. Check iron panel. Thank you for the consult. Job ID: [id number]
[2020-03-14] MEDS: hydrALAZINE 20 MG/ML VIAL SLOW IVP PRN (23:34)
[2020-03-15 01:05] LABS: Bacteria/HPF None Seen HPF (None Seen); Bilirubin Negative (Negative); Blood, Urine 2+ (Negative); Clarity Clear (Clear); Glucose, Urine (Dipstick) 30 mg/dL (Negative); Ketone, Urine Trace mg/dL (Negative); Leukocyte Negative Leu/uL (Negative); Nitrite Negative (Negative); Protein, Urine (Dipstick) 200 mg/dL (Neg-Trace); Specific Gravity, Urine 1.013 (1.002-1.036); Squamous Epithelial None Seen HPF (0-3); Urobilinogen Normal mg/dL (Less than 2); WBC/HPF None Seen HPF (0-3)
[2020-03-15 01:08] LABS: Urine Culture Reflex No No
[2020-03-15] MEDS: Labetalol HCl 100 MG/20 ML VIAL SLOW IVP PRN ×3 (05:01→20:58)
--- NOTE | 2020-03-15 05:47 | PRG ---
DATE OF SERVICE: 03/14/2020 SUBJECTIVE: The patient was seen on morning rounds. She is sitting up in bed, eating breakfast. She reports that she slept poorly overnight due to itching. She has not gotten much relief from the emollient lotion that was provided to her and is unclear if she has gotten any relief from hydrocortisone but she continues to have symptoms despite this. She also complains of having word-finding difficulty, which has been unchanged throughout this admission. This morning, she also endorses some burning when she pees. This started after she had a bowel movement in a diaper and was not changed for quite some time. Her is present at the bedside this morning. He reports that she has been calling him in the middle of the night, sometimes she thinks that it is daytime when she is calling him. Discussed further evaluation with MRI brain. The patient and her state that this may have already been done, although they are unsure if this is an MRI of her brain or if this is an MRI of her spine. OBJECTIVE: VITAL SIGNS: Temperature 97.9, pulse 70, blood pressure 158/71, respirations 18, O2 saturation 97% on room air. GENERAL: Elderly female, sitting up in bed, eating breakfast without difficulty. She is intermittently in mild distress due to itching. HEENT: Unremarkable. HEART: Regular rate and rhythm. PULMONARY: Equal rise and fall of the chest. GI: Abdomen is soft, nontender, nondistended. EXTREMITIES: 2+ pulses in her extremities. Gross motor and sensation intact. Diffuse excoriations to bilateral lower extremities. GCS 14, -1 for confusion. LABORATORY FINDINGS: WBC 8.6, hemoglobin 8.0, hematocrit 26.7, platelet 134. Sodium 144, potassium 4.2, chloride 102, carbon dioxide 24, BUN 93, creatinine 3.35, GFR 14, glucose 84, calcium 8.5, phosphorus 4.9, magnesium 3.0. IMAGING STUDIES: No new imaging to be reviewed this morning. ASSESSMENT: 1. Status post mechanical fall from standing, on Brilinta. 2. Extra-axial hemorrhage, subdural hemorrhage. 3. Acute kidney injury on chronic kidney disease. 4. Acute hyperphosphatemia and hypermagnesemia. 5. Acute hypokalemia, resolved. 6. History of myocardial infarction, chronic diastolic heart failure. 7. Chronic kidney disease, restrictive airway disease, diabetes, hyperlipidemia. PLAN: The patient with multiple complaints to be addressed this morning. We have added a one time dose of hydroxyzine to see if this controls her itching, and if so, we will add an as-needed dose at bedtime. Suspect that her itching is most likely due to uremic pruritus. We would like to further assess with an MRI and MRA of the brain; however, we will request records for previous MRI imaging before ordering this. She does seem to have poor judgment, lack of insight, and persistent word-finding difficulty, which has been stable over the past few days. She will also be changed to a renal diet. Cardiology has been following the patient. They added Procardia yesterday, which seems to have had some improvement on her blood pressure. Today, we will also consult Nephrology for her persistent kidney injury and possible uremia in the setting of chronic kidney disease. We will continue to hold her home aspirin and Brilinta for 2 weeks due to her subdural hemorrhage. We will check urinalysis due to her dysuria. This patient was seen on rounds with Dr. Soto this morning. Job ID: [id number]
[2020-03-15] MEDS: hydrALAZINE 20 MG/ML VIAL SLOW IVP PRN (06:18)
[2020-03-15 06:22] LABS: #Basophils 0.1 thou/uL (0.0-0.2); #Eosinphils 1.6 thou/uL (0.0-0.7); #Lymphocytes 0.5 thou/uL (1.20-3.40); #Monocytes 0.8 thou/uL (0.11-0.59); #Neutrophils 7.6 thou/uL (1.40-6.50); %Basophils 0.7 % (0.0-1.0); %Eosinophils 15.1 % (0.0-10.0); %Lymphocytes 4.4 % (21.0-51.0); %Monocytes 7.5 % (0.0-10.0); %Neutrophils 72.3 % (42.0-75.0); Mean Corpuscular HGB CONC 30.1 g/dL (32.0-36.0); Mean Corpuscular Hemoglobin 25.4 pg (27.0-31.0); Mean Corpuscular Volume 84.5 fL (78.0-98.0); Mean Platelet Volume 8.6 fL (7.4-10.4); Platelet Count 149 thou/uL (130-400); RBC Distribution Width 15.5 % (11.5-14.5); Red Blood Cell (RBC) Count 3.13 mill/uL (4.20-5.40); White Blood Cell (WBC) Count 10.5 thou/uL (4.8-10.8)
[2020-03-15 06:37] LABS: Iron 23 ug/dL (50-170); Iron Binding Capacity, Total 374 mcg/dL (265-497)
[2020-03-15 06:43] LABS: Anion Gap 21 mmol/L (10-20); BUN (Urea Nitrogen) 96 mg/dL (9.8-20.1); Calc. Creatinine Clearance 22 mL/min (70-130); Calcium 8.6 mg/dL (7.8-10.44); Carbon Dioxide 25 mmol/L (23-31); Chloride 102 mmol/L (98-107); Glucose 94 mg/dL (80-115); Magnesium 2.9 mg/dL (1.6-2.6); Phosphorus 4.8 mg/dL (2.3-4.7); Potassium 4.2 mmol/L (3.5-5.1); Sodium 144 mmol/L (136-145)
[2020-03-15] MEDS: Mometasone 100 MCG/Formoterol 5 MCG 120 PUFF INHALER INH SCH ×2 (07:12→18:24)
--- NOTE | 2020-03-15 07:41 | PRG ---
DATE OF SERVICE: 03/15/2020 I saw Tamiko Amaya on rounds this morning. She is resting comfortably in her room. Nursing does not report any events overnight. The maximum temperature actually recorded is 99.8 degrees Fahrenheit. Her blood pressures have been in the 140s to 160s. Ms. Amaya awakes, she answers questions appropriately. She asks if I have anything more to tell her. She moves all extremities well. I do not find any new deficits. Hemoglobin is 8.0. Ms. Amaya will remain off her Brilinta for a total of 2 weeks. If aspirin therapy needs to be started within a week after her admission seems the reasonable time to do so. She can begin aggressive mobilization with physical therapy and we should be looking towards discharge either home or to inpatient rehab. Job ID: [id number]
[2020-03-15] MEDS: Gabapentin 100 MG CAP PO SCH (10:46)
[2020-03-15] MEDS: Carvedilol 25 MG TAB PO SCH ×2 (10:46→20:58)
[2020-03-15] MEDS: NIFEdipine XL 90 MG TAB PO SCH (10:47)
[2020-03-15] MEDS: Montelukast Sodium 10 mg Tablet PO SCH (10:47)
[2020-03-15] MEDS: Polyethylene Glycol 3350 17 GM Packet PO SCH (10:48)
[2020-03-15] MEDS: levETIRAcetam 500 MG TAB PO SCH ×2 (10:48→20:58)
[2020-03-15] MEDS: Senokot S 8.6-50 MG TAB PO SCH ×2 (10:48→20:59)
[2020-03-15] MEDS: Calcium Acetate 667 MG CAP PO SCH ×2 (10:51→16:20)
[2020-03-15] MEDS: Fluticasone Propionate Nasal Spray 16 gm Bottle NASAL SCH ×2 (10:52→20:59)
[2020-03-15] MEDS ORDERED: EPOETIN ALFA-EPBX (ESRD) 10,000 UNIT/ML VIAL SC SCH (12:00)
[2020-03-15] MEDS ORDERED: Scopolamine 1.5 mg/72 hour Patch TD SCH (13:00)
[2020-03-15] MEDS: Atorvastatin Calcium 40 MG TAB PO SCH (20:58)
[2020-03-15] MEDS: Furosemide 40 MG TAB PO SCH (20:58)
[2020-03-15] MEDS: Loratadine 10 MG TAB PO SCH (20:58)
[2020-03-15] MEDS ORDERED: hydrOXYzine 10 MG TAB PO SCH (21:00)
[2020-03-16] MEDS: Labetalol HCl 100 MG/20 ML VIAL SLOW IVP PRN ×2 (04:55→12:55)
--- NOTE | 2020-03-16 05:28 | PRG ---
DATE OF SERVICE: 03/15/2020 SUBJECTIVE: Patient was seen and examined at bedside and overnight events noted. Patient denies any shortness of breath or chest pain or palpitation. No history of nausea or vomiting or diarrhea or fever or chills or cramps. OBJECTIVE: GENERAL: Elderly female, in no apparent distress. VITAL SIGNS: Temperature 98.7, pulse 74, respiratory rate 18, blood pressure 148/70. LABORATORY DATA: Potassium 4.2, BUN is 96, creatinine is 3.4. Percent saturation 6, ferritin is 125, phosphorus 4.8, magnesium 2.9, PTH 206, vitamin D 31.7. ASSESSMENT AND PLAN: 1. Acute kidney injury on chronic kidney stage 4 with chronic kidney disease stage 4. We will continue to monitor, renal function is slightly worse today. We will continue to hold diuretics with limiting fluid intake. Swelling is better. Shortness of breath is better. 2. Mild hyperphosphatemia which could be the cause of itching. I added some calcium base binder which is PhosLo. 3. Hypocalcemia with secondary hyperparathyroidism. We will start on calcitriol also. 4. Secondary hyperparathyroidism, vitamin D level is stable. 5. Iron deficiency. We will add iron pills. 6. Anemia of chronic disease. We will add a dose of Epogen, also subcu dose and start on iron pills as tolerated. 7. Chronic pruritus could be from uremia, even though phosphorus level is now marginally elevated. Plan to start on some binder and continue hydroxyzine. 8. Continue to hold diuretics and family refused to have IV fluids. Continue to hold diuretics and monitor renal function. We will follow. Job ID: [id number]
[2020-03-16 05:51] LABS: #Basophils 0.1 thou/uL (0.0-0.2); #Eosinphils 1.2 thou/uL (0.0-0.7); #Lymphocytes 0.4 thou/uL (1.20-3.40); #Monocytes 0.7 thou/uL (0.11-0.59); #Neutrophils 6.7 thou/uL (1.40-6.50); %Basophils 0.6 % (0.0-1.0); %Eosinophils 13.3 % (0.0-10.0); %Lymphocytes 4.7 % (21.0-51.0); %Monocytes 7.5 % (0.0-10.0); Hemoglobin 7.9 g/dL (12.0-16.0); Mean Corpuscular HGB CONC 31.1 g/dL (32.0-36.0); Mean Corpuscular Hemoglobin 25.6 pg (27.0-31.0); Mean Corpuscular Volume 82.4 fL (78.0-98.0); Mean Platelet Volume 8.4 fL (7.4-10.4); Platelet Count 131 thou/uL (130-400); RBC Distribution Width 15.2 % (11.5-14.5); Red Blood Cell (RBC) Count 3.08 mill/uL (4.20-5.40)
[2020-03-16 06:23] LABS: Anion Gap 18 mmol/L (10-20); BUN (Urea Nitrogen) 94 mg/dL (9.8-20.1); Calc. Creatinine Clearance 23 mL/min (70-130); Calcium 8.7 mg/dL (7.8-10.44); Carbon Dioxide 25 mmol/L (23-31); Chloride 102 mmol/L (98-107); Glucose 126 mg/dL (80-115); Phosphorus 4.3 mg/dL (2.3-4.7); Sodium 141 mmol/L (136-145)
--- NOTE | 2020-03-16 06:45 | PRG ---
DATE OF SERVICE: 03/15/2020 SUBJECTIVE: This patient was seen on morning rounds. She is sitting up on the edge of the bed preparing to be transferred to the bedside chair. She reports that she slept poorly overnight due to itching, although she does appear much more comfortable today than she did yesterday. She did receive 1 dose of hydroxyzine yesterday afternoon and then another dose around bedtime last night. She also has as needed lotion and hydrocortisone to help control her itching. Her daughter is at the bedside, who just arrived from [place] this morning. The patient is very happy to see her. No new acute complaints this morning. OBJECTIVE: VITAL SIGNS: Temperature 98.7, heart rate 74, respirations 18, O2 saturation documented in MAR is 97% on 1 L nasal cannula, although she was 93% on room air during my exam, blood pressure 148/70. GENERAL: Elderly female, sitting up on the edge of the bed, in no acute distress. HEENT: Unremarkable. PULMONARY: Equal rise and fall of the chest. ABDOMEN: Soft, nondistended. EXTREMITIES: Moves all 4 extremities without difficulty. SKIN: Diffuse excoriations to bilateral lower extremities. NEUROLOGIC: GCS 15. LABORATORY FINDINGS: WBC 10.5, hemoglobin 8.0, hematocrit 26.5, platelets 149. Sodium 144, potassium 4.2, chloride 102, carbon dioxide 25, BUN 96, creatinine 3.42, phosphorus 4.8, magnesium 2.9. Iron 23, TIBC 374, percent saturation 6%. Ferritin 125. Vitamin D 31.7. PTH intact 206.1. Negative urinalysis. DIAGNOSTIC FINDINGS: Renal ultrasound with no hydronephrosis, poorly-defined left kidney, urinary bladder not visualized, and [id number] volume ascites within the dependent pelvis. ASSESSMENT: 1. Status post mechanical fall from standing while on Brilinta. 2. Subdural hemorrhage. 3. Acute kidney injury on chronic kidney disease. 4. Hyperphosphatemia and hypermagnesemia. 5. Hypokalemia, resolved. 6. History of [place], diastolic heart failure, chronic kidney disease, restrictive airway disease, diabetes, and hyperlipidemia. PLAN: I suspect that patient's itching is due to uremic pruritus. She seems to have had some improvement with the hydroxyzine overnight, although she does not endorse that she does appear much more comfortable. It did, however, make her drowsy when she received a dose during the day yesterday, so we will schedule a dose for bedtime each night, but we will not schedule further hydroxyzine during the day. She will continue to use the lotion and hydrocortisone as needed per her orders for itching during the daytime. Nephrology was consulted yesterday and we appreciate their recommendations. They have added a phosphate binder, which over the next few days should also help to improve her itching if it is due to uremic pruritus as suspected. Per the request of Dr. Jones yesterday, her bedtime dose of Lasix and her morning dose of Lasix this morning were held to monitor her kidney function. She has been on very large doses of furosemide. This is her outpatient dose, which was continued when she came here into the hospital. It is suspected that this may be one of the main contributing factors to her current acute kidney injury. She had a renal ultrasound performed, which did not reveal any hydronephrosis or major pathology. We will continue to follow the recommendations of the Nephrology team. Cardiology has also been following this patient earlier in the week. They added Procardia to her regimen for better control of her blood pressure, which seems to have made some improvement. She also has significant heart failure, which we will need to watch closely while holding her Lasix due to this acute kidney injury. We appreciate any further recommendations from the Cardiology team. This patient was seen on rounds with Dr. Soto. Job ID: [id number]
[2020-03-16] MEDS: Mometasone 100 MCG/Formoterol 5 MCG 120 PUFF INHALER INH SCH (06:57)
--- NOTE | 2020-03-16 07:08 | PRG ---
DATE OF SERVICE: 03/16/2020 I saw Ms. Amaya in her hospital room this morning. She is resting comfortably as I entered the room. When I come earlier in the morning, she is typically less alert, but during the day, she awakes and talks to her nurses. This was the case yesterday, and there have been no events overnight. The Maximum temperature I see is from yesterday and it was 99.8 degrees Fahrenheit. Blood pressures have been 130s to 170s. I can wake Ms. Lowery. She says a few words to me, and she goes back to sleep. She moves all 4 extremities well. Hemoglobin is 7.9. Ms. Lowery continues to convalesce in the hospital. If she is not safe for activities of daily living, discharge to rehab may be in order. Job ID: [id number] [facility]
[2020-03-16] MEDS ORDERED: Ferrous Gluconate 324 MG TAB PO SCH (08:00)
[2020-03-16] MEDS ORDERED: Saccharomyces boulardii 250 MG CAP PO SCH (09:00)
[2020-03-16] MEDS: levETIRAcetam 500 MG TAB PO SCH (10:02)
[2020-03-16] MEDS: Senokot S 8.6-50 MG TAB PO SCH (10:02)
[2020-03-16] MEDS: NIFEdipine XL 90 MG TAB PO SCH (10:02)
[2020-03-16] MEDS: Gabapentin 100 MG CAP PO SCH (10:02)
[2020-03-16] MEDS: Carvedilol 25 MG TAB PO SCH (10:03)
[2020-03-16] MEDS: Calcium Acetate 667 MG CAP PO SCH ×2 (10:03→12:54)
[2020-03-16] MEDS: Montelukast Sodium 10 mg Tablet PO SCH (10:04)
[2020-03-16] MEDS: Fluticasone Propionate Nasal Spray 16 gm Bottle NASAL SCH (10:06)
[2020-03-16] MEDS: Polyethylene Glycol 3350 17 GM Packet PO SCH (10:06)
--- NOTE | 2020-03-16 11:51 | PRG ---
DATE OF SERVICE: SUBJECTIVE: Patient was seen and examined at bedside and overnight events noted. Patient denies any shortness of breath or chest pain or palpitation. No history of nausea or vomiting or diarrhea or fever or chills or cramps. OBJECTIVE: General: This is a well-built female, in no apparent distress. Vital Signs: Temperature 98.2. Heart Rate 74. Respiratory rate 18. Blood pressure 166/85. HEENT: Atraumatic, normocephalic. Oral mucosa is moist. Neck: Supple. Cardiovascular: S1, S2 heard. Rate and rhythm regular. Respiratory: Clear to auscultation. Gastrointestinal: Abdomen is soft. Musculoskeletal: No tenderness. No edema. Dermatologic: No skin rash. Neurologic: Alert and awake and oriented x3. No focal neurologic deficits. Moving all the extremities. Psychiatric: Mood and affect normal. LABORATORY DATA: Potassium 4.0, BUN is 94, creatinine is 3.3. ASSESSMENT AND PLAN: 1. Acute kidney injury on chronic kidney disease stage 4, stable. Fluid status is stable. Continue to hold diuretics may be one more day. We will follow. 2. Edema. 3. Hyperphosphatemia, seems to be better. 4. Hypocalcemia with secondary hyperparathyroidism. 5. Iron deficiency. 6. Anemia of chronic disease. 7. Overall, labs are stable. This seems to be her baseline and avoid nephrotoxins. We will hold the diuretics for now since she is having low p.o. intake. We will monitor status. Avoid nephrotoxins. Renally dose the medications. We will follow. Thank you for the consult. Job ID: [id number]
[2020-03-16 12:33] VITALS: TEMP 97.9
[2020-03-16 15:00] VITALS: BP 148/77
[2020-03-16] MEDS ORDERED: NIFEdipine XL 30 MG TAB PO SCH (15:00)
--- NOTE | 2020-03-17 06:39 | PRG ---
DATE OF SERVICE: 03/16/2020 SUBJECTIVE: This patient was seen on morning rounds. She is sitting up in a chair next to the bed. She states that her itching has improved since yesterday. She is upset that her is not here yet. No one is at the bedside with her this morning. She is currently on 2 L nasal cannula. She says that she is not feeling any respiratory distress right now. She is comfortable on the nasal cannula. She would like to elevate her legs. OBJECTIVE: VITAL SIGNS: Temp 98.2, pulse 74, blood pressure 166/85, respirations 18, 98% on 2 L nasal cannula. GENERAL: An elderly female, sitting up in bedside chair. No acute distress, although somewhat histrionic. HEENT: Unremarkable. PULMONARY: She has equal rise and fall of the chest. She does have few rales at her bilateral bases, but is in no respiratory distress. Breathing comfortably without any use of accessory muscles. ABDOMEN: Soft, nontender, nondistended. EXTREMITIES: Moves all four extremities without difficulty. SKIN: Diffuse excoriations to bilateral lower extremities. NEUROLOGIC: GCS is 15. LABORATORY DATA: WBC 9.0, hemoglobin 7.9, hematocrit 25.4, platelets 131. Sodium 141, potassium 4.0, chloride 102, carbon dioxide 25, BUN 94, creatinine 3.39, glucose 126, calcium 8.7, phosphorus 4.3, magnesium 3.0. DIAGNOSTIC FINDINGS: Echocardiogram with normal left ventricular size and ejection fraction of 55% to 60%. ASSESSMENT: 1. Status post mechanical fall from standing while on Bril[place]. 2. Subdural hemorrhage. 3. Acute kidney injury on chronic kidney disease. 4. Hyperphosphatemia and hypermagnesemia, improving. 5. Hypokalemia, resolved. 6. History of myocardial infarction, diastolic heart failure, chronic kidney disease, restrictive airway disease, diabetes, and hyperlipidemia. PLAN: From a trauma standpoint, Mrs. Amaya seemed to be stable. Her only injury from her fall is subdural hemorrhage. Current hospitalization has been complicated by her comorbid medical problems including a history of heart failure and chronic kidney disease with exacerbating acute kidney injury. As noted, she had an echo performed yesterday which revealed an ejection fraction of 55% to 60%.. There is no mention made of heart failure in this report. Dr. Jones with Nephrology has been following the patient. Currently we are holding her diuretics per his recommendation to see if this helps her acute kidney injury. She is on 2 L nasal cannula this morning, which she has intermittently been using throughout her admission, both before and after stopping her diuretics. She is not in respiratory distress. We will continue monitoring her volume status closely. At this time, we will hold her diuretics. Help the patient elevate her legs on the bed this morning. We appreciate the recommendations of the Nephrology team. Ultimately, this patient would benefit from going to a rehab facility due to the complexity of her medical issues. She is currently pending placement at [facility] on her insurance authorization. This patient was seen on rounds with Dr. Castillo. Job ID: [id number]
[2020-03-17] MEDS ORDERED: NIFEdipine XL 60 MG TAB PO SCH (09:00)
[2020-03-17] MEDS ORDERED: Calcitriol 0.25 MCG CAP PO SCH (09:00)
[2020-03-17] MEDS ORDERED: NIFEdipine XL 30 MG TAB PO SCH (09:00)
== END 2020-03-16 15:15 | DRG 86 ==
LOC: ERS 15:15 → ERHOLD 16:52 → IMCU/EMU 19:41 → SURG B 03-11 15:26
PROVIDERS: ADMIT Surgery; ATTEND Surgery
DX: S06.5X0A Traumatic subdural hemorrhage without loss of consciousness, initial encounter (principal); N17.9 Acute kidney failure, unspecified; N18.4 Chronic kidney disease, stage 4 (severe); I50.32 Chronic diastolic (congestive) heart failure; I13.0 Hypertensive heart and chronic kidney disease with heart failure and stage 1 through stage 4 chronic kidney disease, or unspecified chronic kidney disease; E11.22 Type 2 diabetes mellitus with diabetic chronic kidney disease; I50.9 Heart failure, unspecified; E78.5 Hyperlipidemia, unspecified; E87.6 Hypokalemia; E83.41 Hypermagnesemia; E83.39 Other disorders of phosphorus metabolism; E88.09 Other disorders of plasma-protein metabolism, not elsewhere classified; E21.1 Secondary hyperparathyroidism, not elsewhere classified; D63.1 Anemia in chronic kidney disease; L29.9 Pruritus, unspecified; E61.1 Iron deficiency; R77.8 Other specified abnormalities of plasma proteins; K21.9 Gastro-esophageal reflux disease without esophagitis; Z88.0 Allergy status to penicillin; Z88.6 Allergy status to analgesic agent; Z90.89 Acquired absence of other organs; Z79.82 Long term (current) use of aspirin; Z79.899 Other long term (current) drug therapy; Z98.42 Cataract extraction status, left eye; Z98.41 Cataract extraction status, right eye; I25.2 Old myocardial infarction; Z20.828 Contact with and (suspected) exposure to other viral communicable diseases
CPT/HCPCS: 36415; 36416; 36430; 51701; 70450; 71045; 76770; 80048; 80053; 80306; 80307; 81001; 81003; 81015; 82140; 82306; 82553; 82728; 83540; 83550; 83735; 83970; 84100; 84484; 85025; 85610; 85730; 86850; 86900; 86901; 87086; 93005; 93306; 94640; G0390; J0360; J1815; J3480; J7050; J7620; P9035; Q5105; S0028; U0002